=== PATIENT | female | born 1970 | race African-American/Black ===

== ENCOUNTER 2017-02-06 13:29 | Inpatient (IN) ==
[2017-02-07] MEDS ORDERED: DEXTROSE 50% 25 GM/50 ML VIAL IV PRN (06:26)
[2017-02-07] MEDS ORDERED: GLUCAGON 1 MG VIAL IM PRN (06:26)
[2017-02-07] MEDS ORDERED: CEFUROXIME INJ 1,500 MG in SYRINGE 1 EACH IV ONE (06:26)
[2017-02-07] MEDS ORDERED: ZOLPIDEM 5 MG TABLET PO PRN (06:31)
[2017-02-07] MEDS ORDERED: ATORVASTATIN 40 MG TABLET PO SCH (09:00)
[2017-02-07] MEDS ORDERED: ALLOPURINOL 300 MG TABLET PO SCH (09:00)
[2017-02-07] MEDS: CHLORHEXIDINE 4% SOLN 118 ML BOTTLE TOP SCH ×2 (19:30→21:52)
[2017-02-07] MEDS: METOPROLOL TARTRATE 25 MG TABLET PO SCH (21:52)
[2017-02-07] MEDS: CHLORHEXIDINE 0.12% ORAL RINSE 60 ML BOTTLE SWISH/SPIT SCH (21:53)
[2017-02-08] MEDS ORDERED: VANCOMYCIN 1,000 MG VIAL ONE (05:24)
[2017-02-08] MEDS ORDERED: PAPAVERINE 60 MG/2 ML VIAL ONE (05:24)
[2017-02-08] MEDS: METOPROLOL TARTRATE 25 MG TABLET PO SCH (05:57)
[2017-02-08] MEDS: LISINOPRIL 20 MG TABLET PO SCH (05:57)
[2017-02-08] MEDS ORDERED: CEFUROXIME INJ 1,500 MG in SYRINGE 1 EACH IV ONE (06:00)
[2017-02-08] MEDS ORDERED: FAMOTIDINE 20 MG TABLET PO ONE (06:00)
[2017-02-08] MEDS ORDERED: DIAZEPAM 5 MG TABLET PO ONE (06:00)
[2017-02-08] MEDS: CHLORHEXIDINE 4% SOLN 118 ML BOTTLE TOP SCH (06:01)
[2017-02-08 07:55] LABS: ABG Base Excess -2.9 MMOL/L (-2.5-2.5); ABG Oxygen Saturation 99.6 % (95-100); ABG PCO2 42.9 MM HG (35-48); ABG PH 7.335 (7.35-7.45); ABG TCO2 20.7 MMOL/L (23-27); Glucose Heart Surgery 110 MG/DL (74-106); Hematocrit Heart Surgery 33.9 PERCENT (37-47); Ionized Calcium Arterial 1.25 MMOL/L (1.21-1.46); PCO2 Patient Temp Arterial 42.9 MMHG; PH Patient Temp Arterial 7.335; Patient Temperature 37 CELCIUS; Potassium Heart/CVR 3.8 MMOL/L (3.5-5.1); Sodium Heart/CVR 143 MMOL/L (135-145)
[2017-02-08 09:12] LABS: Apearance,Urine Slightly Hazy (Clear); Bacteria,Urine Many /HPF (Few); Bilirubin,Urine Negative (Negative); Blood, Urine Negative (Negative); Glucose,Urine (UA) Negative (Negative); Ketones,Urine Negative (Negative); Mucus,Urine Occasional /LPF (Occasional); Nitrite,Urine Negative (Negative); Protein,Urine 100 MG/DL; RBC,Urine 4 /HPF (0-4); Squamous Epithelial Cell,Urine Occasional /HPF (0-10); Urine Color Yellow (Yellow); Urine Specific Gravity 1.016 (1.001-1.035); Urine Urobilinogen < 2.0 EU/DL (0.2-1.0); WBC,Urine 5 /HPF (0-6)
[2017-02-08 09:34] LABS: Hemoglobin Heart Surgery 8.1 G/DL (12.0-16.0); PCO2 Patient Temp Venous 31.3 MM HG; PH Patient Temp Venous 7.484; PO2 Patient Temp Venous 35.3 MM HG; Potassium Heart/CVR 4.6 MMOL/L (3.5-5.1); VBG Base Excess -0.4 MEQ/L (0-4); VBG HCO3 23.6 MEQ/L (24-28); VBG Oxygen Saturation 83.8 %; VBG PCO2 35.7 MMHG (41-51); VBG PH 7.439; VBG PO2 43.6 MMHG (17-40)
[2017-02-08 09:59] LABS: Hemoglobin Heart Surgery 8.5 G/DL (12.0-16.0); PCO2 Patient Temp Venous 24.5 MM HG; PH Patient Temp Venous 7.563; Potassium Heart/CVR 3.8 MMOL/L (3.5-5.1); VBG Base Excess -0.4 MEQ/L (0-4); VBG HCO3 22.4 MEQ/L (24-28); VBG Oxygen Saturation 83.7 %; VBG PCO2 29.2 MMHG (41-51); VBG PH 7.502; VBG PO2 41.1 MMHG (17-40)
[2017-02-08] MEDS ORDERED: PHENYLEPHRINE DRIP 40 MG/250 ML PREMIX IV ONE (10:16)
[2017-02-08] MEDS ORDERED: NITROPRUSSIDE 50 MG/2 ML VIAL ONE (10:16)
[2017-02-08] MEDS ORDERED: CALCIUM CHLORIDE 1,000 MG/10 ML SYRINGE IV ONE (10:16)
[2017-02-08] MEDS ORDERED: POTASSIUM CHLORIDE RIDER 0 ML IV ONE (10:17)
[2017-02-08 10:33] LABS: Hemoglobin Heart Surgery 7.7 G/DL (12.0-16.0); PCO2 Patient Temp Venous 33.2 MM HG; PH Patient Temp Venous 7.457; Potassium Heart/CVR 4.1 MMOL/L (3.5-5.1); VBG Base Excess -0.1 MEQ/L (0-4); VBG HCO3 24.1 MEQ/L (24-28); VBG Oxygen Saturation 78.6 %; VBG PCO2 36.5 MMHG (41-51); VBG PH 7.427; VBG PO2 42.5 MMHG (17-40)
[2017-02-08] MEDS ORDERED: SODIUM BICARBONATE 50 MEQ/50 ML SYRINGE IV ONE ×3 (11:09→21:23)
[2017-02-08] MEDS ORDERED: DEXTROSE 5% KCL 20 MEQ 20 MEQ/1,000 ML BAG IV ONE (11:09)
[2017-02-08] MEDS ORDERED: HEPARIN 10,000 UNIT/10 ML VIAL ONE (11:09)
[2017-02-08] MEDS ORDERED: ALBUMIN 25% 25 GM/100 ML VIAL IV ONE (11:09)
[2017-02-08] MEDS ORDERED: MANNITOL 12.5 GM/50 ML VIAL IV ONE (11:09)
[2017-02-08] MEDS ORDERED: PROTAMINE SULFATE 250 MG/25 ML VIAL IV ONE (11:09)
[2017-02-08] MEDS ORDERED: FUROSEMIDE 20 MG/2 ML VIAL ONE (11:09)
[2017-02-08] MEDS ORDERED: MAGNESIUM SULFATE 1 GM/2 ML VIAL ONE (11:09)
[2017-02-08] MEDS ORDERED: methylPREDNISolone SOD SUC 1,000 MG/8 ML VIAL ONE (11:09)
[2017-02-08] MEDS ORDERED: PROTAMINE SULFATE 50 MG/5 ML VIAL IV ONE ×3 (11:10→12:40)
[2017-02-08 11:18] LABS: ABG Base Excess -3.8 MMOL/L (-2.5-2.5); ABG HCO3 21.3 MMOL/L (20-26); ABG Oxygen Saturation 99.6 % (95-100); ABG PCO2 38.1 MM HG (35-48); ABG PH 7.356 (7.35-7.45); ABG TCO2 19.9 MMOL/L (23-27); Glucose Heart Surgery 189 MG/DL (74-106); Hematocrit Heart Surgery 26.2 PERCENT (37-47); Hemoglobin Heart Surgery 8.4 G/DL (12.0-16.0); Ionized Calcium Arterial 1.26 MMOL/L (1.21-1.46); PCO2 Patient Temp Arterial 38.1 MMHG; PH Patient Temp Arterial 7.356; Patient Temperature 37 CELCIUS; Potassium Heart/CVR 3.8 MMOL/L (3.5-5.1); Sodium Heart/CVR 141 MMOL/L (135-145)
[2017-02-08] MEDS ORDERED: THROMBIN TOPICAL (RECOMBINANT) 5,000 UNIT VIAL TOP ONE (12:23)
[2017-02-08] MEDS: LACTATED RINGERS 1,000 ML IV PRN ×2 (12:30→13:30)
[2017-02-08] MEDS ORDERED: MORPHINE 10 MG/1 ML VIAL IV PRN (12:47)
[2017-02-08] MEDS ORDERED: INSULIN REGULAR 100 UNIT/ML IV ONE (12:47)
[2017-02-08] MEDS ORDERED: VECURONIUM 10 MG VIAL IV PRN ×2 (12:47)
[2017-02-08] MEDS ORDERED: CALCIUM CHLORIDE 1,000 MG/10 ML SYRINGE IV PRN (12:47)
[2017-02-08] MEDS ORDERED: MORPHINE 2 MG/1 ML SYRINGE IV PRN (12:47)
[2017-02-08] MEDS ORDERED: SODIUM CHLORIDE 0.45% 1,000 ML IV SCH ×2 (12:47)
[2017-02-08] MEDS ORDERED: ACETAMINOPHEN 650 MG SUPP RECTAL PRN (12:47)
[2017-02-08] MEDS ORDERED: POTASSIUM CHLORIDE RIDER 10 MEQ in PREMIX 1 EACH IV PRN (12:47)
[2017-02-08] MEDS ORDERED: INSULIN REGULAR DRIP 100 ML IV SCH (12:47)
[2017-02-08] MEDS ORDERED: NITROPRUSSIDE 100 MG in DEXTROSE 5% 250 ML IV PRN (12:47)
[2017-02-08] MEDS ORDERED: DEXTROSE 50% 25 GM/50 ML VIAL IV PRN ×2 (12:47)
[2017-02-08] MEDS ORDERED: MAGNESIUM SULF RIDER 2 GM in PREMIX 1 EACH IV PRN (12:47)
[2017-02-08] MEDS ORDERED: PHENYLEPHRINE DRIP 40 MG/250 ML PREMIX IV PRN (12:47)
[2017-02-08] MEDS ORDERED: LACTATED RINGERS 250 ML IV PRN (12:47)
[2017-02-08] MEDS ORDERED: INSULIN REGULAR 100 UNIT/ML IV PRN (12:47)
[2017-02-08] MEDS ORDERED: MIDAZOLAM 10 MG/2 ML VIAL IV PRN (12:47)
[2017-02-08] MEDS ORDERED: MAGNESIUM SULF RIDER 4 GM in PREMIX 1 EACH IV PRN (12:47)
[2017-02-08 12:54] LABS: ABG Base Excess -5.1 MMOL/L (-2.5-2.5); ABG HCO3 20.1 MMOL/L (20-26); ABG PCO2 37.2 MM HG (35-48); ABG PH 7.341 (7.35-7.45); ABG TCO2 18.9 MMOL/L (23-27); Basophils # 0.1 10*3/uL (0.0-0.2); Basophils % 0.4 % (0.0-0.8); Eosinophils # 0.1 10*3/uL (0.0-0.87); Eosinophils % 0.4 % (0.00-10.9); Glucose Heart Surgery 185 MG/DL (74-106); Hematocrit Heart Surgery 24.8 PERCENT (37-47); Hemoglobin 7.7 GM/DL (12.0-16.0); Immature Granulocytes Absolute 0.19 #; Lymphocytes # 2.6 10*3/uL (1.4-4.0); Lymphocytes % 14.1 % (21.3-54.2); Mean Corpuscular HGB Conc 32.1 GM/DL (32-36); Mean Corpuscular Hemoglobin 30 PG (27-34); Mean Corpuscular Volume 94.9 FL (87-102); Mean Platelet Volume 10.8 FL (9.6-12.0); Monocytes # 1.2 10*3/uL (0.11-0.8); Monocytes % 6.3 % (1.7-12.7); Neutrophils # 14.6 10*3/uL (1.4-7.4); Neutrophils % 77.8 % (38.7-73.9); Platelet Count 223 T/CUMM (130-400); Potassium Heart/CVR 3.6 MMOL/L (3.5-5.1); Red Blood Count 2.53 MC/CUMM (3.8-5.5); Red Cell Distribution Width 14.5 % (9.3-17.3); White Blood Count 18.8 T/CUMM (4-12)
[2017-02-08] MEDS: ALBUMIN 5% 12.5 GM in PREMIX 1 EACH IV PRN ×2 (13:00→13:15)
[2017-02-08] MEDS ORDERED: ePHEDrine 50 MG/ML AMP ONE (13:01)
[2017-02-08 13:04] LABS: INR 1.1; PT Patient Result 11.9 SECS; Partial Thromboplastin Time 30.7 SECS (0-40)
[2017-02-08] MEDS ORDERED: SEVOFLURANE 1 UNIT/15 MINUTE INH ONE (13:04)
[2017-02-08] MEDS ORDERED: PHENYLEPHRINE DRIP 20 MG/250 ML PREMIX IV ONE (13:04)
[2017-02-08] MEDS ORDERED: CALCIUM CHLORIDE 1,000 MG/10 ML VIAL IV ONE (13:04)
[2017-02-08] MEDS ORDERED: SUFentanil 250 MCG/5 ML AMP ONE ×2 (13:05)
[2017-02-08] MEDS: POTASSIUM CHLORIDE RIDER 20 MEQ in PREMIX 1 EACH IV PRN ×3 (13:05→16:10)
[2017-02-08] MEDS ORDERED: AMIODARONE 150 MG/3 ML VIAL ONE (13:05)
[2017-02-08] MEDS ORDERED: MIDAZOLAM 10 MG/2 ML VIAL ONE (13:05)
[2017-02-08] MEDS ORDERED: LACTATED RINGERS 2,000 ML IV ONE (13:06)
[2017-02-08] MEDS ORDERED: ESMOLOL 100 MG/10 ML VIAL IV ONE (13:06)
[2017-02-08] MEDS ORDERED: SODIUM CHLORIDE 0.9% 100 ML IV ONE (13:06)
[2017-02-08] MEDS ORDERED: SODIUM CHLORIDE 0.9% 250 ML IV ONE (13:06)
[2017-02-08] MEDS ORDERED: ETOMIDATE 40 MG/20 ML VIAL IV ONE (13:06)
[2017-02-08] MEDS ORDERED: VECURONIUM 10 MG VIAL IV ONE (13:06)
[2017-02-08] MEDS ORDERED: SODIUM CHLORIDE 0.9% 2,000 ML IV ONE (13:06)
[2017-02-08] MEDS ORDERED: NITROGLYCERIN DRIP 50 MG/250 ML BOTTLE IV ONE (13:06)
[2017-02-08] MEDS: KETOROLAC 30 MG/1 ML VIAL IV SCH ×2 (13:30→19:36)
[2017-02-08 13:32] LABS: Albumin 2.9 G/DL (3.4-5.0); Bilirubin,Total 0.6 MG/DL (0.2-1.0); Calcium 7.8 MG/DL (8.5-10.1); Magnesium 2.1 MG/DL (1.8-2.4); Osmolality,Calculated 292.8 MOS/KG (273-304); Potassium 3.7 MMOL/L (3.5-5.1); Total Protein 5.2 G/DL (6.4-8.3)
[2017-02-08 13:37] LABS: CKMB % 7.3 %
[2017-02-08 13:39] LABS: Troponin I Only 6.93 NG/ML (0.00-0.045)
[2017-02-08] MEDS: MIDAZOLAM 2 MG/2 ML VIAL IV PRN ×2 (15:15→16:25)
[2017-02-08 15:59] LABS: ABG Base Excess -3.8 MMOL/L (-2.5-2.5); ABG HCO3 20.9 MMOL/L (20-26); ABG Oxygen Saturation 98.6 % (95-100); ABG PCO2 36.8 MM HG (35-48); ABG PH 7.373 (7.35-7.45); ABG PO2 219.3 MM HG (80-95); ABG TCO2 22.1 MMOL/L (23-27); Glucose Heart Surgery 190 MG/DL (74-106); Hemoglobin Heart Surgery 9.9 G/DL (12.0-16.0); Potassium Heart/CVR 4.6 MMOL/L (3.5-5.1)
[2017-02-08 17:03] LABS: ABG Base Excess -4.2 MMOL/L (-2.5-2.5); ABG HCO3 20.9 MMOL/L (20-26); ABG Oxygen Saturation 99.1 % (95-100); ABG PCO2 39.5 MM HG (35-48); ABG PH 7.339 (7.35-7.45); ABG TCO2 19.4 MMOL/L (23-27); Glucose Heart Surgery 209 MG/DL (74-106); Hematocrit Heart Surgery 31.7 PERCENT (37-47); Hemoglobin Heart Surgery 10.3 G/DL (12.0-16.0); Potassium Heart/CVR 5.3 MMOL/L (3.5-5.1)
[2017-02-08] MEDS ORDERED: FUROSEMIDE 40 MG/4 ML VIAL IV PRN (17:24)
[2017-02-08 19:03] LABS: ABG Base Excess -7.1 MMOL/L (-2.5-2.5); ABG HCO3 18.6 MMOL/L (20-26); ABG Oxygen Saturation 97.5 % (95-100); ABG PCO2 43.7 MM HG (35-48); ABG PH 7.262 (7.35-7.45); ABG TCO2 18.1 MMOL/L (23-27); Glucose Heart Surgery 228 MG/DL (74-106); Hematocrit Heart Surgery 32.4 PERCENT (37-47); Hemoglobin Heart Surgery 10.5 G/DL (12.0-16.0); Potassium Heart/CVR 4.6 MMOL/L (3.5-5.1)
[2017-02-08] MEDS ORDERED: CEFUROXIME INJ 1,500 MG in SYRINGE 1 EACH IV SCH (20:26)
[2017-02-08] MEDS ORDERED: CHLORHEXIDINE 0.12% ORAL RINSE 60 ML BOTTLE SWISH/SPIT SCH (21:00)
[2017-02-08] MEDS ORDERED: METOPROLOL TARTRATE 25 MG TABLET PO SCH (21:00)
[2017-02-08 21:12] LABS: ABG Base Excess -6.3 MMOL/L (-2.5-2.5); ABG HCO3 19.3 MMOL/L (20-26); ABG PCO2 43.4 MM HG (35-48); ABG PH 7.279 (7.35-7.45); ABG TCO2 18.6 MMOL/L (23-27); Glucose Heart Surgery 228 MG/DL (74-106); Hematocrit Heart Surgery 32.7 PERCENT (37-47); Hemoglobin Heart Surgery 10.6 G/DL (12.0-16.0); Potassium Heart/CVR 4.9 MMOL/L (3.5-5.1)
[2017-02-08 22:09] LABS: CKMB % 11.1 %
[2017-02-08 22:14] LABS: Troponin I Only 22.3 NG/ML (0.00-0.045)
[2017-02-08 22:17] LABS: ABG Base Excess -4.3 MMOL/L (-2.5-2.5); ABG HCO3 20.9 MMOL/L (20-26); ABG PCO2 41.8 MM HG (35-48); ABG PH 7.321 (7.35-7.45); ABG TCO2 19.7 MMOL/L (23-27); Glucose Heart Surgery 219 MG/DL (74-106); Hematocrit Heart Surgery 32.3 PERCENT (37-47); Hemoglobin Heart Surgery 10.4 G/DL (12.0-16.0); Potassium Heart/CVR 4.9 MMOL/L (3.5-5.1)
[2017-02-08] MEDS: ONDANSETRON 4 MG/2 ML VIAL IV PRN (23:16)
[2017-02-09 00:14] LABS: ABG Base Excess -3.1 MMOL/L (-2.5-2.5); ABG HCO3 22.9 MMOL/L (20-26); ABG Oxygen Saturation 97.4 % (95-100); ABG PCO2 45.4 MM HG (35-48); ABG PH 7.321 (7.35-7.45); ABG PO2 113.7 MM HG (80-95); ABG TCO2 24.3 MMOL/L (23-27); Glucose Heart Surgery 182 MG/DL (74-106); Hemoglobin Heart Surgery 10.8 G/DL (12.0-16.0)
[2017-02-09] MEDS: KETOROLAC 30 MG/1 ML VIAL IV SCH ×5 (01:37→21:24)
[2017-02-09 04:09] LABS: ABG Base Excess -0.6 MMOL/L (-2.5-2.5); ABG PCO2 48.1 MM HG (35-48); ABG PH 7.336 (7.35-7.45); ABG TCO2 23.4 MMOL/L (23-27); Glucose Heart Surgery 110 MG/DL (74-106); Hematocrit Heart Surgery 32.2 PERCENT (37-47); Hemoglobin Heart Surgery 10.4 G/DL (12.0-16.0); Potassium Heart/CVR 4.8 MMOL/L (3.5-5.1)
[2017-02-09 04:57] LABS: Alanine Aminotransferase 59 U/L (13-56); Albumin 3.5 G/DL (3.4-5.0); Alkaline Phosphatase 103 U/L (45-117); Aspartate Amino Transferase 294 U/L (0-37); Bilirubin,Total < 0.39 MG/DL (0.2-1.0); Blood Urea Nitrogen 21 MG/DL (7-18); Glucose 101 MG/DL (74-106); Magnesium 2.1 MG/DL (1.8-2.4); Osmolality,Calculated 294.4 MOS/KG (273-304); Sodium 147 MMOL/L (136-145); Total Protein 6.2 G/DL (6.4-8.3)
[2017-02-09 04:59] LABS: Basophils % 0.1 % (0.0-0.8); Hematocrit 30.2 VOL% (35.7-47.0); Immature Granulocytes % 0.7 %; Immature Granulocytes Absolute 0.15 #; Lymphocytes # 1.8 10*3/uL (1.4-4.0); Lymphocytes % 7.6 % (21.3-54.2); Mean Corpuscular HGB Conc 33.1 GM/DL (32-36); Mean Corpuscular Hemoglobin 31 PG (27-34); Mean Corpuscular Volume 92.9 FL (87-102); Monocytes # 1.8 10*3/uL (0.11-0.8); Neutrophils # 19.2 10*3/uL (1.4-7.4); Neutrophils % 83.6 % (38.7-73.9); Platelet Count 223 T/CUMM (130-400); Red Blood Count 3.25 MC/CUMM (3.8-5.5); Red Cell Distribution Width 15.1 % (9.3-17.3)
[2017-02-09 05:18] LABS: CKMB % 13.3 %
[2017-02-09 05:24] LABS: Lymphocytes 9 % (20-55); Platelet Estimate Adequate; Segmented Neutrophils 82 % (50-85); Total Cells Counted 100
[2017-02-09 05:25] LABS: Giant Platelets Few; Hypochromasia 1+
[2017-02-09 05:27] LABS: Troponin I Only 37.1 NG/ML (0.00-0.045)
[2017-02-09] MEDS: ONDANSETRON 4 MG/2 ML VIAL IV PRN (05:32)
[2017-02-09] MEDS ORDERED: ONDANSETRON 4 MG/2 ML VIAL IV PRN (07:16)
[2017-02-09] MEDS ORDERED: GLUCAGON 1 MG VIAL IM PRN ×2 (07:16)
[2017-02-09] MEDS ORDERED: ZALEPLON 5 MG CAPSULE PO PRN (07:16)
[2017-02-09] MEDS ORDERED: ALUMINUM/MAGNES/SIMETH MAX STR 30 ML UDCUP PO PRN (07:16)
[2017-02-09] MEDS ORDERED: ACETAMINOPHEN 325 MG TABLET PO PRN (07:16)
[2017-02-09] MEDS ORDERED: MAGNESIUM SULF RIDER 4 GM in PREMIX 1 EACH IV PRN (07:16)
[2017-02-09] MEDS ORDERED: oxyCODONE/ACETAMINOPHEN 5-325 MG TABLET PO PRN (07:16)
[2017-02-09] MEDS ORDERED: POTASSIUM CHLORIDE 20 MEQ TABLET PO PRN (07:16)
[2017-02-09] MEDS ORDERED: DEXTROSE 50% 25 GM/50 ML VIAL IV PRN ×2 (07:16)
[2017-02-09] MEDS ORDERED: MAGNESIUM HYDROXIDE SUSP 30 ML UDCUP PO PRN (07:16)
[2017-02-09] MEDS ORDERED: MAGNESIUM SULF RIDER 2 GM in PREMIX 1 EACH IV PRN (07:16)
[2017-02-09] MEDS: FERROUS SULFATE 325 MG TABLET PO SCH (08:56)
[2017-02-09] MEDS: SODIUM CHLOR 0.45% KCL 20 MEQ 20 MEQ/1,000 ML BAG IV SCH (09:13)
[2017-02-09] MEDS: ALLOPURINOL 300 MG TABLET PO SCH ×2 (09:14→09:49)
[2017-02-09] MEDS: CHLORHEXIDINE 0.12% ORAL RINSE 60 ML BOTTLE SWISH/SPIT SCH ×3 (09:14→21:32)
[2017-02-09] MEDS: DOCUSATE SODIUM 100 MG CAPSULE PO SCH ×2 (09:15→09:49)
[2017-02-09] MEDS: ASPIRIN EC 325 MG TABLET PO SCH ×2 (09:15→09:49)
[2017-02-09] MEDS: CEFUROXIME INJ 1,500 MG in SYRINGE 1 EACH IV SCH ×2 (09:19→21:24)
[2017-02-09] MEDS: PANTOPRAZOLE 40 MG TABLET PO SCH (09:22)
[2017-02-09] MEDS: METOPROLOL TARTRATE 25 MG TABLET PO SCH ×3 (09:24→21:18)
[2017-02-09] MEDS ORDERED: METOCLOPRAMIDE 10 MG/2 ML VIAL IV ONE (11:00)
[2017-02-09] MEDS ORDERED: PROMETHAZINE INJ 12.5 MG in SODIUM CHLORIDE 0.9% 50 ML IV ONE (11:00)
[2017-02-09] MEDS: LISINOPRIL 20 MG TABLET PO SCH (11:34)
[2017-02-09 12:21] LABS: CKMB % 12.4 %
[2017-02-09 12:24] LABS: Troponin I Only 38.6 NG/ML (0.00-0.045)
[2017-02-09] MEDS ORDERED: PHENYLEPHRINE DRIP 40 MG/250 ML PREMIX IV ONE (14:05)
[2017-02-09] MEDS: PHENYLEPHRINE DRIP 40 MG/250 ML PREMIX IV SCH (14:27)
[2017-02-09] MEDS: ATORVASTATIN 40 MG TABLET PO SCH (21:18)
[2017-02-10] MEDS: KETOROLAC 30 MG/1 ML VIAL IV SCH ×2 (01:14→09:05)
[2017-02-10 05:52] LABS: Basophils % 0.1 % (0.0-0.8); Hematocrit 25.3 VOL% (35.7-47.0); Hemoglobin 8.5 GM/DL (12.0-16.0); Immature Granulocytes % 1.1 %; Immature Granulocytes Absolute 0.29 #; Lymphocytes # 3.2 10*3/uL (1.4-4.0); Lymphocytes % 12.1 % (21.3-54.2); Mean Corpuscular HGB Conc 33.6 GM/DL (32-36); Mean Corpuscular Hemoglobin 31 PG (27-34); Mean Corpuscular Volume 93.4 FL (87-102); Mean Platelet Volume 10.8 FL (9.6-12.0); Monocytes # 3.1 10*3/uL (0.11-0.8); Monocytes % 11.7 % (1.7-12.7); NRBC # 0.09 10*3/uL; Platelet Count 198 T/CUMM (130-400); Red Blood Count 2.71 MC/CUMM (3.8-5.5); Red Cell Distribution Width 15.6 % (9.3-17.3); White Blood Count 26.7 T/CUMM (4-12)
[2017-02-10] MEDS ORDERED: FUROSEMIDE 40 MG/4 ML VIAL IV ONE (06:00)
[2017-02-10] MEDS: PHENYLEPHRINE DRIP 40 MG/250 ML PREMIX IV SCH (06:09)
[2017-02-10 06:28] LABS: Lymphocytes 19 % (20-55); Platelet Estimate Normal; Segmented Neutrophils 71 % (50-85); Total Cells Counted 100
[2017-02-10 06:59] LABS: Albumin 3.1 G/DL (3.4-5.0); Bilirubin,Direct 0.1 MG/DL (0.0-0.20); Bilirubin,Indirect 0.8 MG/DL (0.0-1.0); Bilirubin,Total 0.9 MG/DL (0.2-1.0); CKMB % 6.2 %; Calcium 8.2 MG/DL (8.5-10.1); Magnesium 2.1 MG/DL (1.8-2.4); Osmolality,Calculated 298.6 MOS/KG (273-304); Potassium 4.9 MMOL/L (3.5-5.1); Total Protein 5.7 G/DL (6.4-8.3)
[2017-02-10 07:06] LABS: Troponin I Only 24.5 NG/ML (0.00-0.045)
[2017-02-10] MEDS: FERROUS SULFATE 325 MG TABLET PO SCH (08:42)
[2017-02-10] MEDS: METOPROLOL TARTRATE 25 MG TABLET PO SCH ×3 (08:42→21:15)
[2017-02-10] MEDS: PANTOPRAZOLE 40 MG TABLET PO SCH (08:42)
[2017-02-10] MEDS: DOCUSATE SODIUM 100 MG CAPSULE PO SCH (08:42)
[2017-02-10] MEDS: ASPIRIN EC 325 MG TABLET PO SCH (08:42)
[2017-02-10] MEDS: ALLOPURINOL 300 MG TABLET PO SCH (08:42)
[2017-02-10] MEDS: CHLORHEXIDINE 0.12% ORAL RINSE 60 ML BOTTLE SWISH/SPIT SCH ×2 (08:43→21:15)
[2017-02-10] MEDS: SODIUM CHLOR 0.45% KCL 20 MEQ 20 MEQ/1,000 ML BAG IV SCH (08:43)
[2017-02-10] MEDS ORDERED: DEXTROSE 50% 25 GM/50 ML VIAL IV PRN ×2 (13:50)
[2017-02-10] MEDS ORDERED: POTASSIUM CHLORIDE 20 MEQ TABLET PO PRN (13:50)
[2017-02-10] MEDS ORDERED: MAGNESIUM SULF RIDER 2 GM in PREMIX 1 EACH IV PRN (13:50)
[2017-02-10] MEDS ORDERED: MAGNESIUM HYDROXIDE SUSP 30 ML UDCUP PO PRN (13:50)
[2017-02-10] MEDS ORDERED: GLUCAGON 1 MG VIAL IM PRN ×2 (13:50)
[2017-02-10] MEDS ORDERED: SODIUM CHLOR 0.45% KCL 20 MEQ 20 MEQ/1,000 ML BAG IV SCH (13:50)
[2017-02-10] MEDS ORDERED: ONDANSETRON 4 MG/2 ML VIAL IV PRN (13:50)
[2017-02-10] MEDS ORDERED: ALUMINUM/MAGNES/SIMETH MAX STR 30 ML UDCUP PO PRN (13:50)
[2017-02-10] MEDS ORDERED: MAGNESIUM SULF RIDER 4 GM in PREMIX 1 EACH IV PRN (13:50)
[2017-02-10] MEDS ORDERED: ACETAMINOPHEN 325 MG TABLET PO PRN (13:50)
[2017-02-10] MEDS ORDERED: DEXTROSE 5% LACTATED RINGERS 1,000 ML IV SCH (19:00)
[2017-02-10] MEDS ORDERED: METOPROLOL TARTRATE 25 MG TABLET PO SCH (21:00)
[2017-02-10] MEDS: ATORVASTATIN 40 MG TABLET PO SCH (21:14)
[2017-02-10] MEDS: SODIUM CHLORIDE 0.9% 1,000 ML IV SCH ×2 (23:40→23:41)
[2017-02-11 05:40] LABS: Basophils % 0.2 % (0.0-0.8); Eosinophils % 0.1 % (0.00-10.9); Hematocrit 23.3 VOL% (35.7-47.0); Hemoglobin 7.3 GM/DL (12.0-16.0); Immature Granulocytes % 0.7 %; Immature Granulocytes Absolute 0.14 #; Lymphocytes # 3.7 10*3/uL (1.4-4.0); Lymphocytes % 18.9 % (21.3-54.2); Mean Corpuscular HGB Conc 31.3 GM/DL (32-36); Mean Corpuscular Hemoglobin 30 PG (27-34); Mean Corpuscular Volume 97.1 FL (87-102); Mean Platelet Volume 11.3 FL (9.6-12.0); Monocytes # 2.6 10*3/uL (0.11-0.8); Monocytes % 13.2 % (1.7-12.7); NRBC # 0.07 10*3/uL; Neutrophils # 13.1 10*3/uL (1.4-7.4); Neutrophils % 66.9 % (38.7-73.9); Platelet Count 167 T/CUMM (130-400); Red Cell Distribution Width 15.4 % (9.3-17.3); White Blood Count 19.6 T/CUMM (4-12)
[2017-02-11] MEDS ORDERED: FUROSEMIDE 40 MG/4 ML VIAL IV ONE (06:00)
[2017-02-11 06:12] LABS: Albumin 2.9 G/DL (3.4-5.0); Bilirubin,Direct 0.12 MG/DL (0.0-0.20); Bilirubin,Indirect 0.5 MG/DL (0.0-1.0); Bilirubin,Total 0.6 MG/DL (0.2-1.0); CKMB % 2.1 %; Calcium 8.3 MG/DL (8.5-10.1); Magnesium 2.1 MG/DL (1.8-2.4); Osmolality,Calculated 296.6 MOS/KG (273-304); Potassium 4.3 MMOL/L (3.5-5.1); Total Protein 5.7 G/DL (6.4-8.3)
[2017-02-11 06:14] LABS: Troponin I Only 16.9 NG/ML (0.00-0.045)
[2017-02-11] MEDS ORDERED: SODIUM CHLORIDE 0.9% 1,000 ML IV PRN (06:36)
[2017-02-11] MEDS ORDERED: ATORVASTATIN 40 MG TABLET PO SCH (09:00)
[2017-02-11] MEDS ORDERED: ALLOPURINOL 300 MG TABLET PO SCH (09:00)
[2017-02-11] MEDS: METOPROLOL TARTRATE 25 MG TABLET PO SCH ×2 (09:07→21:28)
[2017-02-11] MEDS: FERROUS SULFATE 325 MG TABLET PO SCH (09:07)
[2017-02-11] MEDS: PANTOPRAZOLE 40 MG TABLET PO SCH (09:08)
[2017-02-11] MEDS: DOCUSATE SODIUM 100 MG CAPSULE PO SCH (09:08)
[2017-02-11] MEDS: CHLORHEXIDINE 0.12% ORAL RINSE 60 ML BOTTLE SWISH/SPIT SCH ×2 (09:08→21:28)
[2017-02-11] MEDS: ASPIRIN EC 325 MG TABLET PO SCH (09:08)
[2017-02-11] MEDS: ALLOPURINOL 300 MG TABLET PO SCH (09:09)
[2017-02-11] MEDS: ATORVASTATIN 40 MG TABLET PO SCH (21:28)
[2017-02-11] MEDS: oxyCODONE/ACETAMINOPHEN 5-325 MG TABLET PO PRN (21:28)
[2017-02-12 04:43] LABS: Basophils # 0.1 10*3/uL (0.0-0.2); Basophils % 0.4 % (0.0-0.8); Eosinophils # 0.1 10*3/uL (0.0-0.87); Eosinophils % 0.5 % (0.00-10.9); Hematocrit 29.4 VOL% (35.7-47.0); Hemoglobin 9.4 GM/DL (12.0-16.0); Immature Granulocytes % 0.8 %; Immature Granulocytes Absolute 0.15 #; Lymphocytes # 3.6 10*3/uL (1.4-4.0); Lymphocytes % 19.1 % (21.3-54.2); Mean Corpuscular Hemoglobin 30 PG (27-34); Mean Corpuscular Volume 94.5 FL (87-102); Mean Platelet Volume 11.3 FL (9.6-12.0); Monocytes % 10.7 % (1.7-12.7); NRBC # 0.11 10*3/uL; Neutrophils # 12.9 10*3/uL (1.4-7.4); Neutrophils % 68.5 % (38.7-73.9); Platelet Count 196 T/CUMM (130-400); Red Blood Count 3.11 MC/CUMM (3.8-5.5); Red Cell Distribution Width 16.1 % (9.3-17.3); White Blood Count 18.9 T/CUMM (4-12)
[2017-02-12 05:13] LABS: Bilirubin,Direct 0.15 MG/DL (0.0-0.20); Bilirubin,Indirect 0.6 MG/DL (0.0-1.0); Bilirubin,Total 0.7 MG/DL (0.2-1.0); CKMB % 1.8 %; Calcium 8.6 MG/DL (8.5-10.1); Magnesium 2.2 MG/DL (1.8-2.4); Potassium 4.3 MMOL/L (3.5-5.1); Total Protein 6.1 G/DL (6.4-8.3)
[2017-02-12 05:20] LABS: Troponin I Only 15.5 NG/ML (0.00-0.045)
[2017-02-12] MEDS: oxyCODONE/ACETAMINOPHEN 5-325 MG TABLET PO PRN ×3 (07:38→20:43)
[2017-02-12] MEDS: DOCUSATE SODIUM 100 MG CAPSULE PO SCH (10:44)
[2017-02-12] MEDS: METOPROLOL TARTRATE 25 MG TABLET PO SCH ×2 (10:44→20:43)
[2017-02-12] MEDS: PANTOPRAZOLE 40 MG TABLET PO SCH (10:45)
[2017-02-12] MEDS: FERROUS SULFATE 325 MG TABLET PO SCH (10:46)
[2017-02-12] MEDS: ALLOPURINOL 300 MG TABLET PO SCH (10:46)
[2017-02-12] MEDS: ASPIRIN EC 325 MG TABLET PO SCH (10:46)
[2017-02-12] MEDS: CHLORHEXIDINE 0.12% ORAL RINSE 60 ML BOTTLE SWISH/SPIT SCH ×2 (10:46→20:50)
[2017-02-12] MEDS ORDERED: HYDROmorphone 2 MG/1 ML VIAL IV PRN (12:33)
[2017-02-12] MEDS: ATORVASTATIN 40 MG TABLET PO SCH (20:43)
[2017-02-13] MEDS: ZALEPLON 5 MG CAPSULE PO PRN ×2 (00:59→21:27)
[2017-02-13] MEDS: FERROUS SULFATE 325 MG TABLET PO SCH (10:16)
[2017-02-13] MEDS: oxyCODONE/ACETAMINOPHEN 5-325 MG TABLET PO PRN (10:16)
[2017-02-13] MEDS: DOCUSATE SODIUM 100 MG CAPSULE PO SCH (10:16)
[2017-02-13] MEDS: METOPROLOL TARTRATE 25 MG TABLET PO SCH ×2 (10:17→21:27)
[2017-02-13] MEDS: ASPIRIN EC 325 MG TABLET PO SCH (10:17)
[2017-02-13] MEDS: ALLOPURINOL 300 MG TABLET PO SCH (10:17)
[2017-02-13] MEDS: PANTOPRAZOLE 40 MG TABLET PO SCH (10:19)
[2017-02-13] MEDS: CHLORHEXIDINE 0.12% ORAL RINSE 60 ML BOTTLE SWISH/SPIT SCH ×2 (10:20→21:29)
[2017-02-13] MEDS: ATORVASTATIN 40 MG TABLET PO SCH (21:27)
[2017-02-14 05:11] LABS: Basophils # 0.1 10*3/uL (0.0-0.2); Basophils % 0.3 % (0.0-0.8); Eosinophils # 0.2 10*3/uL (0.0-0.87); Eosinophils % 1.4 % (0.00-10.9); Hematocrit 30.9 VOL% (35.7-47.0); Hemoglobin 10.3 GM/DL (12.0-16.0); Immature Granulocytes Absolute 0.18 #; Lymphocytes # 3.3 10*3/uL (1.4-4.0); Mean Corpuscular HGB Conc 33.3 GM/DL (32-36); Mean Corpuscular Hemoglobin 30 PG (27-34); Mean Corpuscular Volume 90.6 FL (87-102); Mean Platelet Volume 10.2 FL (9.6-12.0); Monocytes # 1.7 10*3/uL (0.11-0.8); Monocytes % 9.6 % (1.7-12.7); NRBC # 0.05 10*3/uL; Neutrophils # 11.8 10*3/uL (1.4-7.4); Neutrophils % 68.7 % (38.7-73.9); Platelet Count 302 T/CUMM (130-400); Red Blood Count 3.41 MC/CUMM (3.8-5.5); Red Cell Distribution Width 14.5 % (9.3-17.3); White Blood Count 17.2 T/CUMM (4-12)
[2017-02-14 05:52] LABS: Alanine Aminotransferase 124 U/L (13-56); Albumin 2.7 G/DL (3.4-5.0); Alkaline Phosphatase 201 U/L (45-117); Aspartate Amino Transferase 96 U/L (0-37); Bilirubin,Indirect 0.7 MG/DL (0.0-1.0); Blood Urea Nitrogen 15 MG/DL (7-18); Calcium 8.6 MG/DL (8.5-10.1); Glucose 95 MG/DL (74-106); Magnesium 1.9 MG/DL (1.8-2.4); Osmolality,Calculated 281.3 MOS/KG (273-304); Potassium 4.1 MMOL/L (3.5-5.1); Sodium 141 MMOL/L (136-145); Total Protein 6.2 G/DL (6.4-8.3)
[2017-02-14] MEDS: FERROUS SULFATE 325 MG TABLET PO SCH (08:32)
[2017-02-14] MEDS: METOPROLOL TARTRATE 25 MG TABLET PO SCH ×2 (08:32→20:48)
[2017-02-14] MEDS: CHLORHEXIDINE 0.12% ORAL RINSE 60 ML BOTTLE SWISH/SPIT SCH ×2 (08:33→20:48)
[2017-02-14] MEDS: ASPIRIN EC 325 MG TABLET PO SCH (08:33)
[2017-02-14] MEDS: PANTOPRAZOLE 40 MG TABLET PO SCH (08:33)
[2017-02-14] MEDS: DOCUSATE SODIUM 100 MG CAPSULE PO SCH ×2 (08:33→20:48)
[2017-02-14] MEDS: ALLOPURINOL 300 MG TABLET PO SCH (08:33)
[2017-02-14] MEDS: oxyCODONE/ACETAMINOPHEN 5-325 MG TABLET PO PRN (08:39)
[2017-02-14] MEDS: ATORVASTATIN 40 MG TABLET PO SCH (20:48)
[2017-02-14] MEDS: ZOLPIDEM 5 MG TABLET PO PRN (20:51)
[2017-02-15 04:56] LABS: Basophils # 0.1 10*3/uL (0.0-0.2); Basophils % 0.3 % (0.0-0.8); Eosinophils # 0.2 10*3/uL (0.0-0.87); Eosinophils % 0.7 % (0.00-10.9); Hematocrit 30.7 VOL% (35.7-47.0); Hemoglobin 10.3 GM/DL (12.0-16.0); Immature Granulocytes % 0.8 %; Immature Granulocytes Absolute 0.18 #; Lymphocytes # 2.5 10*3/uL (1.4-4.0); Lymphocytes % 11.3 % (21.3-54.2); Mean Corpuscular HGB Conc 33.6 GM/DL (32-36); Mean Corpuscular Hemoglobin 30 PG (27-34); Mean Corpuscular Volume 89.5 FL (87-102); Mean Platelet Volume 9.9 FL (9.6-12.0); Monocytes % 8.6 % (1.7-12.7); NRBC # 0.03 10*3/uL; Neutrophils # 17.7 10*3/uL (1.4-7.4); Neutrophils % 78.3 % (38.7-73.9); Platelet Count 356 T/CUMM (130-400); Red Blood Count 3.43 MC/CUMM (3.8-5.5); Red Cell Distribution Width 14.2 % (9.3-17.3); White Blood Count 22.6 T/CUMM (4-12)
[2017-02-15 05:27] LABS: Eosinophils 1 % (0-10); Hypochromasia 1+; Lymphocytes 9 % (20-55); Segmented Neutrophils 83 % (50-85); Total Cells Counted 100
[2017-02-15 05:28] LABS: Microcytosis Slight; Platelet Estimate Normal
[2017-02-15 05:30] LABS: Alanine Aminotransferase 107 U/L (13-56); Albumin 2.8 G/DL (3.4-5.0); Alkaline Phosphatase 216 U/L (45-117); Aspartate Amino Transferase 69 U/L (0-37); Bilirubin,Indirect 0.8 MG/DL (0.0-1.0); Blood Urea Nitrogen 17 MG/DL (7-18); Calcium 8.8 MG/DL (8.5-10.1); Glucose 103 MG/DL (74-106); Magnesium 1.9 MG/DL (1.8-2.4); Osmolality,Calculated 282.3 MOS/KG (273-304); Potassium 4.1 MMOL/L (3.5-5.1); Sodium 141 MMOL/L (136-145); Total Protein 6.4 G/DL (6.4-8.3)
[2017-02-15] MEDS: CHLORHEXIDINE 0.12% ORAL RINSE 60 ML BOTTLE SWISH/SPIT SCH ×2 (08:00→21:25)
[2017-02-15] MEDS: ALLOPURINOL 300 MG TABLET PO SCH (08:00)
[2017-02-15] MEDS: DOCUSATE SODIUM 100 MG CAPSULE PO SCH ×2 (08:00→21:21)
[2017-02-15] MEDS: METOPROLOL TARTRATE 25 MG TABLET PO SCH ×2 (08:00→21:21)
[2017-02-15] MEDS: FERROUS SULFATE 325 MG TABLET PO SCH (08:00)
[2017-02-15] MEDS: ASPIRIN EC 325 MG TABLET PO SCH (08:00)
[2017-02-15] MEDS: PANTOPRAZOLE 40 MG TABLET PO SCH (08:00)
[2017-02-15] MEDS: ATORVASTATIN 40 MG TABLET PO SCH (21:21)
[2017-02-15] MEDS: ZOLPIDEM 5 MG TABLET PO PRN (21:21)
[2017-02-16] MEDS: PANTOPRAZOLE 40 MG TABLET PO SCH (10:30)
[2017-02-16] MEDS: DOCUSATE SODIUM 100 MG CAPSULE PO SCH ×2 (10:31→21:40)
[2017-02-16] MEDS: ALLOPURINOL 300 MG TABLET PO SCH (10:31)
[2017-02-16] MEDS: FERROUS SULFATE 325 MG TABLET PO SCH (10:31)
[2017-02-16] MEDS: ASPIRIN EC 325 MG TABLET PO SCH (10:31)
[2017-02-16] MEDS: METOPROLOL TARTRATE 25 MG TABLET PO SCH ×2 (10:32→21:40)
[2017-02-16] MEDS: ATORVASTATIN 40 MG TABLET PO SCH (21:40)
[2017-02-16] MEDS: ZOLPIDEM 5 MG TABLET PO PRN (21:40)
[2017-02-17 08:20] VITALS: BP 110/69
[2017-02-17] MEDS: FERROUS SULFATE 325 MG TABLET PO SCH (10:46)
[2017-02-17] MEDS: ASPIRIN EC 325 MG TABLET PO SCH (10:46)
[2017-02-17] MEDS: METOPROLOL TARTRATE 25 MG TABLET PO SCH (10:50)
[2017-02-17] MEDS: ALLOPURINOL 300 MG TABLET PO SCH (10:53)
[2017-02-17] MEDS: PANTOPRAZOLE 40 MG TABLET PO SCH (10:53)
[2017-02-17] MEDS: DOCUSATE SODIUM 100 MG CAPSULE PO SCH (10:53)
== END 2017-02-17 12:24 | disposition home health service (06) | DRG 235 ==
LOC: N.TELES 02-07 18:24 → SUPCPDRO 02-07 18:24 → N.CVR 02-08 09:26 → N.ICU 02-09 18:03 → N.TELES 02-10 13:01

== ENCOUNTER 2017-04-30 23:21 | Inpatient (IN) ==
[2017-04-30] MEDS ORDERED: NOREPINEPHRINE 4 MG/4 ML VIAL IV ONE (23:37)
[2017-04-30] MEDS: NOREPINEPHRINE 8 MG in SODIUM CHLORIDE 0.9% 242 ML IV SCH (23:44)
[2017-05-01] MEDS ORDERED: MIDAZOLAM 10 MG/2 ML VIAL ONE ×2 (00:01→00:19)
[2017-05-01 00:12] LABS: Basophils # 0.1 10*3/uL (0.0-0.2); Basophils % 0.6 % (0.0-0.8); Eosinophils # 0.1 10*3/uL (0.0-0.87); Eosinophils % 0.7 % (0.00-10.9); Hematocrit 48.6 VOL% (35.7-47.0); Hemoglobin 14.1 GM/DL (12.0-16.0); Immature Granulocytes Absolute 0.18 #; Lymphocytes # 7.7 10*3/uL (1.4-4.0); Mean Corpuscular Hemoglobin 28 PG (27-34); Mean Corpuscular Volume 96.6 FL (87-102); Mean Platelet Volume 11.5 FL (9.6-12.0); Monocytes # 1.7 10*3/uL (0.11-0.8); Monocytes % 9.6 % (1.7-12.7); NRBC # 0.07 10*3/uL; Neutrophils # 7.7 10*3/uL (1.4-7.4); Neutrophils % 44.1 % (38.7-73.9); Platelet Count 255 T/CUMM (130-400); Red Blood Count 5.03 MC/CUMM (3.8-5.5); Red Cell Distribution Width 17.1 % (9.3-17.3); White Blood Count 17.4 T/CUMM (4-12)
[2017-05-01] MEDS: MIDAZOLAM 100 MG in SODIUM CHLORIDE 0.9% 80 ML IV SCH ×3 (00:24→23:54)
[2017-05-01 00:39] LABS: Alanine Aminotransferase 68 U/L (13-56); Alkaline Phosphatase 223 U/L (45-117); Aspartate Amino Transferase 72 U/L (0-37); Bilirubin,Total < 0.39 MG/DL (0.2-1.0); Blood Urea Nitrogen 23 MG/DL (7-18); Calcium 8.5 MG/DL (8.5-10.1); Glucose 288 MG/DL (74-106); Potassium 3.4 MMOL/L (3.5-5.1); Sodium 143 MMOL/L (136-145); Total Protein 7.4 G/DL (6.4-8.3)
[2017-05-01 00:40] LABS: Lactic Acid 13.7 MMOL/L (0.4-2.0)
[2017-05-01 00:41] LABS: Troponin I Only 0.091 NG/ML (0.00-0.045)
[2017-05-01] MEDS ORDERED: MIDAZOLAM 10 MG/2 ML VIAL IV STA ×2 (00:42)
[2017-05-01 00:53] LABS: Band Neutrophils 1 % (0-10); Eosinophils 1 % (0-10); Lymphocytes 47 % (20-55); Nucleated Red Blood Cells 1 (0-5); Segmented Neutrophils 39 % (50-85); Total Cells Counted 100
[2017-05-01] MEDS ORDERED: SODIUM CHLORIDE 0.9% 1,000 ML IV STA (00:53)
[2017-05-01 00:54] LABS: ABG Base Excess -10.5 MMOL/L (-2.5-2.5); ABG HCO3 16.2 MMOL/L (20-26); ABG Oxygen Saturation 95.8 % (95-100); ABG PCO2 44.7 MM HG (35-48); ABG TCO2 15.9 MMOL/L (23-27)
[2017-05-01 00:54] LABS: Atypical Lymphocytes Few
[2017-05-01 00:57] LABS: ABG PH 7.202 (7.35-7.45)
[2017-05-01] MEDS ORDERED: MEROPENEM 1,000 MG in SODIUM CHLORIDE 0.9% 100 ML IV STA (01:41)
[2017-05-01] MEDS ORDERED: VANCOMYCIN INJ 1,500 MG in SODIUM CHLORIDE 0.9% 500 ML IV STA (01:41)
[2017-05-01 02:07] LABS: Apearance,Urine CLOUDY (Clear); Bilirubin,Urine Negative (Negative); Blood, Urine Small mg/dL (Negative); Glucose,Urine (UA) >=500 mg/dL (Negative); Ketones,Urine Negative (Negative); Mucus,Urine Occasional /LPF (Occasional); Nitrite,Urine Negative (Negative); Protein,Urine >=500 MG/DL; RBC,Urine 111 /HPF (0-4); Urine Color Yellow (Yellow); Urine Specific Gravity 1.014 (1.001-1.035); Urine Urobilinogen < 2.0 EU/DL (0.2-1.0); WBC,Urine 90 /HPF (0-6)
[2017-05-01 02:14] LABS: Barbiturates Screen,Urine Negative (Negative); Benzodiazepines Screen,Urine Positive (Negative); Cannabinoid Screen,Urine Negative (Negative); Opiate Screen,Urine Negative (Negative); Phencyclidine Screen,Urine Negative (Negative)
[2017-05-01] MEDS: fentaNYL INJ 1,250 MCG in SODIUM CHLORIDE 0.9% 225 ML IV SCH ×2 (02:30→15:14)
[2017-05-01] MEDS ORDERED: ALBUTEROL 2.5 MG/3 ML NEB RESP TX PRN (02:46)
[2017-05-01] MEDS ORDERED: ONDANSETRON 4 MG/2 ML VIAL IV PRN (02:46)
[2017-05-01 03:45] LABS: Partial Thromboplastin Time 25.8 SECS (0-40)
[2017-05-01] MEDS ORDERED: LEVOFLOXACIN INJ 750 MG in PREMIX 1 EACH IV SCH (04:00)
[2017-05-01] MEDS: SODIUM CHLORIDE 0.9% 1,000 ML IV SCH ×3 (04:17→23:14)
[2017-05-01] MEDS ORDERED: hydrALAZINE 20 MG/1 ML VIAL IV PRN (04:24)
[2017-05-01] MEDS ORDERED: hydrALAZINE 20 MG/1 ML VIAL ONE (04:30)
[2017-05-01] MEDS ORDERED: ENOXAPARIN 100 MG/ML SYRINGE SUBCUT ONE (04:38)
[2017-05-01] MEDS ORDERED: LORazepam 2 MG/1 ML VIAL ONE (05:58)
[2017-05-01] MEDS: LORazepam 2 MG/1 ML VIAL IV PRN ×3 (06:06→15:23)
[2017-05-01 06:30] LABS: Basophils % 0.2 % (0.0-0.8); Hematocrit 39.6 VOL% (35.7-47.0); Immature Granulocytes % 0.9 %; Immature Granulocytes Absolute 0.22 #; Lymphocytes # 0.9 10*3/uL (1.4-4.0); Lymphocytes % 3.4 % (21.3-54.2); Mean Corpuscular HGB Conc 32.8 GM/DL (32-36); Mean Corpuscular Hemoglobin 29 PG (27-34); Mean Corpuscular Volume 87.8 FL (87-102); Mean Platelet Volume 10.2 FL (9.6-12.0); Monocytes # 1.5 10*3/uL (0.11-0.8); Monocytes % 5.8 % (1.7-12.7); Neutrophils # 22.4 10*3/uL (1.4-7.4); Neutrophils % 89.7 % (38.7-73.9); Platelet Count 302 T/CUMM (130-400); Red Blood Count 4.51 MC/CUMM (3.8-5.5); Red Cell Distribution Width 16.7 % (9.3-17.3)
[2017-05-01 07:00] LABS: ABG Base Excess -5.8 MMOL/L (-2.5-2.5); ABG HCO3 19.7 MMOL/L (20-26); ABG Oxygen Saturation 99.1 % (95-100); ABG PCO2 39.2 MM HG (35-48); ABG PH 7.316 (7.35-7.45); ABG TCO2 17.7 MMOL/L (23-27)
[2017-05-01 07:04] LABS: Calcium 8.3 MG/DL (8.5-10.1); Osmolality,Calculated 295.8 MOS/KG (273-304); Potassium 3.6 MMOL/L (3.5-5.1)
[2017-05-01 07:08] LABS: Total Cells Counted 100
[2017-05-01 07:09] LABS: Hypochromasia Slight
[2017-05-01 07:10] LABS: Microcytosis Slight
[2017-05-01] MEDS ORDERED: SODIUM BICARBONATE 50 MEQ/50 ML VIAL IV ONE (07:15)
[2017-05-01] MEDS ORDERED: EPINEPHrine 1 MG/ML VIAL ONE (07:15)
[2017-05-01 07:35] LABS: Polychromasia Slight
[2017-05-01 07:37] LABS: Band Neutrophils 12 % (0-10); Lymphocytes 4 % (20-55); Platelet Estimate Adequate; Segmented Neutrophils 81 % (50-85)
[2017-05-01] MEDS: PANTOPRAZOLE 40 MG VIAL IV SCH (08:13)
[2017-05-01] MEDS ORDERED: ENOXAPARIN 40 MG/0.4 ML SYRINGE SUBCUT SCH (09:00)
[2017-05-01] MEDS: metroNIDAZOLE INJ 500 MG in PREMIX 1 EACH IV SCH ×2 (10:50→18:11)
[2017-05-01] MEDS ORDERED: VANCOMYCIN INJ 1,750 MG in SODIUM CHLORIDE 0.9% 500 ML IV SCH (11:00)
[2017-05-01 11:02] LABS: Hepatitis B Core Ab Result Negative (Negative); Hepatitis B Surface Ag Quant 0.37 Index; Hepatitis B Surface Ag Result Negative (Negative); Hepatitis C Virus Ab Result Negative (Negative)
[2017-05-01] MEDS ORDERED: MAGNESIUM SULF RIDER 4 GM in PREMIX 1 EACH IV PRN (11:09)
[2017-05-01] MEDS ORDERED: MAGNESIUM SULF RIDER 2 GM in PREMIX 1 EACH IV PRN (11:09)
[2017-05-01] MEDS: NITROGLYCERIN DRIP 50 MG/250 ML BOTTLE IV SCH (11:42)
[2017-05-01] MEDS: ASPIRIN CHEW 81 MG TABLET PO SCH (12:56)
[2017-05-01] MEDS: POTASSIUM CHLORIDE RIDER 10 MEQ in PREMIX 1 EACH IV PRN ×3 (13:08→16:27)
[2017-05-01] MEDS ORDERED: PHENYTOIN INJ 1,000 MG in SODIUM CHLORIDE 0.9% 100 ML IV ONE ×2 (14:00→14:36)
[2017-05-01] MEDS ORDERED: PROPOFOL 1,000 MG/100 ML BOTTLE IV ONE (14:23)
[2017-05-01] MEDS ORDERED: PROPOFOL 1,000 MG/100 ML BOTTLE IV SCH (14:30)
[2017-05-01] MEDS ORDERED: PHENYTOIN INJ 1,500 MG in SODIUM CHLORIDE 0.9% 100 ML IV ONE (15:00)
[2017-05-01] MEDS: ROSUVASTATIN 20 MG TABLET PO SCH (15:05)
[2017-05-01] MEDS: methylPREDNISolone SOD SUC 125 MG/2 ML VIAL IV SCH (15:13)
[2017-05-01] MEDS: CARVEDILOL 3.125 MG TABLET PO SCH ×2 (20:26→20:41)
[2017-05-01] MEDS: COLCHICINE 0.6 MG TABLET PO SCH ×2 (20:26→20:41)
[2017-05-01] MEDS: PHENYLEPHRINE DRIP 40 MG/250 ML PREMIX IV SCH (21:30)
[2017-05-01] MEDS: PHENYTOIN 100 MG/2 ML VIAL IV SCH (23:14)
[2017-05-01] MEDS: NOREPINEPHRINE 8 MG in SODIUM CHLORIDE 0.9% 242 ML IV SCH (23:54)
[2017-05-02] MEDS ORDERED: SODIUM CHLORIDE 0.9% 500 ML IV ONE (00:07)
[2017-05-02] MEDS: methylPREDNISolone SOD SUC 125 MG/2 ML VIAL IV SCH ×2 (00:33→14:56)
[2017-05-02] MEDS: metroNIDAZOLE INJ 500 MG in PREMIX 1 EACH IV SCH (02:26)
[2017-05-02] MEDS: fentaNYL INJ 1,250 MCG in SODIUM CHLORIDE 0.9% 225 ML IV SCH ×2 (02:27→15:06)
[2017-05-02] MEDS: PHENYLEPHRINE DRIP 40 MG/250 ML PREMIX IV SCH ×5 (03:52→22:48)
[2017-05-02 04:57] LABS: Basophils % 0.1 % (0.0-0.8); Hemoglobin 10.5 GM/DL (12.0-16.0); Immature Granulocytes % 0.9 %; Lymphocytes # 1.9 10*3/uL (1.4-4.0); Lymphocytes % 8.2 % (21.3-54.2); Mean Corpuscular HGB Conc 31.8 GM/DL (32-36); Mean Corpuscular Hemoglobin 29 PG (27-34); Mean Corpuscular Volume 89.7 FL (87-102); Mean Platelet Volume 10.5 FL (9.6-12.0); Monocytes # 1.4 10*3/uL (0.11-0.8); Monocytes % 5.9 % (1.7-12.7); NRBC # 0.04 10*3/uL; Neutrophils # 19.8 10*3/uL (1.4-7.4); Neutrophils % 84.9 % (38.7-73.9); Platelet Count 278 T/CUMM (130-400); Red Blood Count 3.68 MC/CUMM (3.8-5.5); Red Cell Distribution Width 17.5 % (9.3-17.3); White Blood Count 23.3 T/CUMM (4-12)
[2017-05-02 05:20] LABS: Hypochromasia 1+
[2017-05-02 05:21] LABS: Platelet Estimate Normal
[2017-05-02 05:22] LABS: Microcytosis 1+
[2017-05-02 05:29] LABS: Albumin 2.4 G/DL (3.4-5.0); Bilirubin,Total 0.5 MG/DL (0.2-1.0); Calcium 8.1 MG/DL (8.5-10.1); Osmolality,Calculated 303.3 MOS/KG (273-304); Potassium 5.1 MMOL/L (3.5-5.1); Total Protein 6.1 G/DL (6.4-8.3)
[2017-05-02 05:30] LABS: Risk Ratio 4.11
[2017-05-02 05:54] LABS: ABG Base Excess -6.4 MMOL/L (-2.5-2.5); ABG HCO3 19.1 MMOL/L (20-26); ABG PCO2 41.5 MM HG (35-48); ABG PH 7.289 (7.35-7.45); ABG TCO2 18.2 MMOL/L (23-27)
[2017-05-02] MEDS: PHENYTOIN 100 MG/2 ML VIAL IV SCH ×2 (06:47→21:51)
[2017-05-02] MEDS ORDERED: Lamivudine [Lamivudine] 300 MG PO SCH (09:00)
[2017-05-02] MEDS: ALLOPURINOL 300 MG TABLET PO SCH (10:00)
[2017-05-02] MEDS: ATAZANAVIR PO SCH (10:00)
[2017-05-02] MEDS: COLCHICINE 0.6 MG TABLET PO SCH ×2 (10:00→21:50)
[2017-05-02] MEDS: COBICISTAT PO SCH (10:00)
[2017-05-02] MEDS: ROSUVASTATIN 20 MG TABLET PO SCH (10:00)
[2017-05-02] MEDS: ENOXAPARIN 30 MG/0.3 ML SYRINGE SUBCUT SCH (10:01)
[2017-05-02] MEDS: CARVEDILOL 3.125 MG TABLET PO SCH ×2 (10:01→21:50)
[2017-05-02] MEDS: ASPIRIN CHEW 81 MG TABLET PO SCH (10:01)
[2017-05-02] MEDS: PANTOPRAZOLE 40 MG VIAL IV SCH (10:51)
[2017-05-02] MEDS: SODIUM CHLORIDE 0.9% 1,000 ML IV SCH ×2 (13:20→23:20)
[2017-05-02] MEDS: NITROGLYCERIN DRIP 50 MG/250 ML BOTTLE IV SCH (14:51)
[2017-05-02] MEDS: CLINDAMYCIN INJ 300 MG in PREMIX 1 EACH IV SCH ×2 (15:00→21:55)
[2017-05-02] MEDS: MIDAZOLAM 100 MG in SODIUM CHLORIDE 0.9% 80 ML IV SCH (15:14)
[2017-05-02] MEDS ORDERED: DEXTROSE 50% 25 GM/50 ML VIAL IV PRN (16:23)
[2017-05-02] MEDS ORDERED: GLUCAGON 1 MG VIAL IM PRN (16:23)
[2017-05-02] MEDS: ACETAMINOPHEN 325 MG TABLET PO PRN (22:50)
[2017-05-03] MEDS: INSULIN REGULAR 100 UNIT/ML SUBCUT SCH ×6 (01:09→23:59)
[2017-05-03] MEDS: methylPREDNISolone SOD SUC 125 MG/2 ML VIAL IV SCH ×2 (01:12→12:14)
[2017-05-03] MEDS: NOREPINEPHRINE 8 MG in SODIUM CHLORIDE 0.9% 242 ML IV SCH (01:12)
[2017-05-03] MEDS: fentaNYL INJ 1,250 MCG in SODIUM CHLORIDE 0.9% 225 ML IV SCH ×2 (03:15→16:57)
[2017-05-03] MEDS: PHENYLEPHRINE DRIP 40 MG/250 ML PREMIX IV SCH ×3 (04:00→22:40)
[2017-05-03 04:28] LABS: ABG Base Excess -7.9 MMOL/L (-2.5-2.5); ABG HCO3 18.2 MMOL/L (20-26); ABG Oxygen Saturation 96.8 % (95-100); ABG PCO2 39.4 MM HG (35-48); ABG PH 7.282 (7.35-7.45); ABG PO2 99.3 MM HG (80-95); ABG TCO2 19.4 MMOL/L (23-27)
[2017-05-03 05:04] LABS: Prealbumin 16.1 MG/DL (20-40)
[2017-05-03] MEDS: ACETAMINOPHEN 325 MG TABLET PO PRN (05:38)
[2017-05-03] MEDS: CLINDAMYCIN INJ 300 MG in PREMIX 1 EACH IV SCH ×3 (05:40→22:37)
[2017-05-03 09:28] LABS: Basophils % 0.1 % (0.0-0.8); Hematocrit 29.3 VOL% (35.7-47.0); Hemoglobin 9.3 GM/DL (12.0-16.0); Immature Granulocytes % 1.6 %; Immature Granulocytes Absolute 0.29 #; Lymphocytes % 11.1 % (21.3-54.2); Mean Corpuscular HGB Conc 31.7 GM/DL (32-36); Mean Corpuscular Hemoglobin 29 PG (27-34); Mean Corpuscular Volume 92.1 FL (87-102); Mean Platelet Volume 10.6 FL (9.6-12.0); Monocytes # 0.8 10*3/uL (0.11-0.8); Monocytes % 4.6 % (1.7-12.7); NRBC # 0.11 10*3/uL; Neutrophils # 15.1 10*3/uL (1.4-7.4); Neutrophils % 82.6 % (38.7-73.9); Platelet Count 183 T/CUMM (130-400); Red Blood Count 3.18 MC/CUMM (3.8-5.5); Red Cell Distribution Width 17.9 % (9.3-17.3); White Blood Count 18.3 T/CUMM (4-12)
[2017-05-03 09:45] LABS: Calcium 7.5 MG/DL (8.5-10.1); Osmolality,Calculated 310.4 MOS/KG (273-304); Potassium 4.8 MMOL/L (3.5-5.1)
[2017-05-03] MEDS: SODIUM CHLORIDE 0.9% 1,000 ML IV SCH ×2 (09:46→21:35)
[2017-05-03] MEDS: ENOXAPARIN 30 MG/0.3 ML SYRINGE SUBCUT SCH (11:19)
[2017-05-03] MEDS: PANTOPRAZOLE 40 MG VIAL IV SCH (11:23)
[2017-05-03] MEDS: ATAZANAVIR PO SCH (11:31)
[2017-05-03] MEDS: COBICISTAT PO SCH (11:31)
[2017-05-03] MEDS: ROSUVASTATIN 20 MG TABLET PO SCH (11:32)
[2017-05-03] MEDS: CARVEDILOL 3.125 MG TABLET PO SCH ×2 (11:33→21:24)
[2017-05-03] MEDS: ALLOPURINOL 300 MG TABLET PO SCH (11:33)
[2017-05-03] MEDS: ASPIRIN CHEW 81 MG TABLET PO SCH (11:33)
[2017-05-03] MEDS: COLCHICINE 0.6 MG TABLET PO SCH (11:34)
[2017-05-03] MEDS: PHENYTOIN 100 MG/2 ML VIAL IV SCH ×2 (12:10→21:24)
[2017-05-03] MEDS: NITROGLYCERIN DRIP 50 MG/250 ML BOTTLE IV SCH (12:53)
[2017-05-03] MEDS: MIDAZOLAM 100 MG in SODIUM CHLORIDE 0.9% 80 ML IV SCH (12:55)
[2017-05-04] MEDS: MIDAZOLAM 100 MG in SODIUM CHLORIDE 0.9% 80 ML IV SCH ×2 (00:10→08:36)
[2017-05-04] MEDS: NOREPINEPHRINE 8 MG in SODIUM CHLORIDE 0.9% 242 ML IV SCH (00:11)
[2017-05-04] MEDS: methylPREDNISolone SOD SUC 125 MG/2 ML VIAL IV SCH ×2 (01:05→12:53)
[2017-05-04] MEDS: fentaNYL INJ 1,250 MCG in SODIUM CHLORIDE 0.9% 225 ML IV SCH ×2 (03:33→09:34)
[2017-05-04] MEDS: CLINDAMYCIN INJ 300 MG in PREMIX 1 EACH IV SCH (05:50)
[2017-05-04] MEDS: INSULIN REGULAR 100 UNIT/ML SUBCUT SCH ×3 (05:58→19:43)
[2017-05-04 06:02] LABS: Basophils % 0.1 % (0.0-0.8); Hematocrit 31.3 VOL% (35.7-47.0); Hemoglobin 9.3 GM/DL (12.0-16.0); Immature Granulocytes % 1.9 %; Immature Granulocytes Absolute 0.34 #; Lymphocytes # 1.3 10*3/uL (1.4-4.0); Lymphocytes % 7.2 % (21.3-54.2); Mean Corpuscular HGB Conc 29.7 GM/DL (32-36); Mean Corpuscular Hemoglobin 28 PG (27-34); Mean Corpuscular Volume 95.4 FL (87-102); Mean Platelet Volume 11.4 FL (9.6-12.0); Monocytes # 1.2 10*3/uL (0.11-0.8); Monocytes % 6.6 % (1.7-12.7); NRBC # 0.25 10*3/uL; Neutrophils # 15.5 10*3/uL (1.4-7.4); Neutrophils % 84.2 % (38.7-73.9); Platelet Count 162 T/CUMM (130-400); Red Blood Count 3.28 MC/CUMM (3.8-5.5); Red Cell Distribution Width 17.8 % (9.3-17.3); White Blood Count 18.4 T/CUMM (4-12)
[2017-05-04 06:31] LABS: Band Neutrophils 5 % (0-10); Hypochromasia 1+; Lymphocytes 9 % (20-55); Microcytosis 1+; Nucleated Red Blood Cells 2 (0-5); Segmented Neutrophils 84 % (50-85); Total Cells Counted 100
[2017-05-04 06:32] LABS: Platelet Estimate Adequate; Spherocytes Slight
[2017-05-04 06:41] LABS: Calcium 7.6 MG/DL (8.5-10.1); Osmolality,Calculated 322.7 MOS/KG (273-304); Potassium 4.7 MMOL/L (3.5-5.1)
[2017-05-04] MEDS: SODIUM CHLORIDE 0.9% 1,000 ML IV SCH (07:35)
[2017-05-04] MEDS: PHENYTOIN 100 MG/2 ML VIAL IV SCH (08:39)
[2017-05-04] MEDS: PANTOPRAZOLE 40 MG VIAL IV SCH (08:42)
[2017-05-04] MEDS: ATAZANAVIR PO SCH (08:43)
[2017-05-04] MEDS: COBICISTAT PO SCH (08:43)
[2017-05-04] MEDS: ROSUVASTATIN 20 MG TABLET PO SCH (08:48)
[2017-05-04] MEDS: CARVEDILOL 3.125 MG TABLET PO SCH ×2 (08:49→21:12)
[2017-05-04] MEDS: ASPIRIN CHEW 81 MG TABLET PO SCH (08:49)
[2017-05-04] MEDS: ENOXAPARIN 30 MG/0.3 ML SYRINGE SUBCUT SCH (08:53)
[2017-05-04 09:35] LABS: ABG Base Excess -9.5 MMOL/L (-2.5-2.5); ABG HCO3 16.8 MMOL/L (20-26); ABG Oxygen Saturation 99.8 % (95-100); ABG PCO2 36.1 MM HG (35-48); ABG PH 7.272 (7.35-7.45); ABG TCO2 15.5 MMOL/L (23-27)
[2017-05-04] MEDS ORDERED: SODIUM CHLORIDE 0.45% 1,000 ML IV SCH (10:30)
[2017-05-04] MEDS ORDERED: PROPOFOL 1,000 MG/100 ML BOTTLE IV SCH (10:30)
[2017-05-04] MEDS: NITROGLYCERIN DRIP 50 MG/250 ML BOTTLE IV SCH (11:30)
[2017-05-04] MEDS ORDERED: DEXTROSE 5% 1,000 ML IV SCH (14:30)
[2017-05-04] MEDS: MUPIROCIN 2% OINT 22 GM TUBE TOP SCH ×2 (14:36→21:13)
[2017-05-04] MEDS ORDERED: MANNITOL IV SCH ×2 (17:00→18:00)
[2017-05-04] MEDS ORDERED: MIDAZOLAM 100 MG in SODIUM CHLORIDE 0.9% 80 ML IV SCH (19:00)
[2017-05-04 20:58] LABS: ABG Base Excess -9.7 MMOL/L (-2.5-2.5); ABG HCO3 16.7 MMOL/L (20-26); ABG Oxygen Saturation 99.9 % (95-100); ABG PCO2 27.4 MM HG (35-48); ABG PH 7.341 (7.35-7.45); ABG TCO2 13.5 MMOL/L (23-27)
[2017-05-04] MEDS ORDERED: PHENYTOIN 100 MG/2 ML VIAL IV SCH (21:00)
[2017-05-04] MEDS: PHENYLEPHRINE DRIP 40 MG/250 ML PREMIX IV SCH (21:05)
[2017-05-04 22:18] VITALS: BP 152/99
== END 2017-05-04 22:15 | DRG 264 ==
LOC: N.ED 23:21 → SUATTDRO 05-01 02:44 → N.EDINP 05-01 02:44 → N.CC 05-01 03:01
PROVIDERS: ADMIT Internal Medicine Infectious Disease; ATTEND Hospitalist